=== PATIENT | female | born 1965 | race Caucasian/White ===

== ENCOUNTER 2016-12-05 22:41 | Inpatient (IN) | payer SELFPAY ==
[~2016-12-05] VITALS: Ht 134.6 cm; Wt 56.0 kg
[2016-12-05 23:02] VITALS: Ht 134.6 cm; Wt 56.0 kg
[2016-12-06 01:28] LABS: BASOPHIL # 0.1 10^3/ul (0.0-0.1); BASOPHILS % 0.6 % (0.0-2.0); EOSINOPHILS # 0.2 10^3/ul (0.0-0.5); EOSINOPHILS % 2.1 % (0.0-7.0); HEMATOCRIT 41.6 % (37.0-47.0); HEMOGLOBIN 14.2 g/dl (12.0-16.0); LYMPHOCYTES # 3.1 10^3/ul (0.8-2.9); LYMPHOCYTES % 29.5 % (15.0-51.0); MEAN CORPUSCULAR HEMOGLOBIN 31.8 pg (29.0-33.0); MEAN CORPUSCULAR HGB CONC 34.1 g/dl (32.0-37.0); MEAN CORPUSCULAR VOLUME 93.1 fl (82.0-101.0); MEAN PLATELET VOLUME 10.4 fl (7.4-10.4); MONOCYTE # 0.8 10^3/ul (0.3-0.9); MONOCYTES % 7.5 % (0.0-11.0); NEUTROPHIL # 6.2 10^3/ul (1.6-7.5); PLATELET COUNT 421 10^3/UL (140-415); RED BLOOD COUNT 4.47 10^6/ul (4.20-5.40); RED CELL DISTRIBUTION WIDTH 12.4 % (11.5-14.5); WHITE BLOOD COUNT 10.4 10^3/ul (4.8-10.8)
[2016-12-06 01:48] LABS: ALANINE AMINOTRANSFERASE 27 IU/L (13-69); ALBUMIN 4.1 g/dl (3.3-4.9); ALBUMIN/GLOBULIN RATIO 1.05; ALKALINE PHOSPHATASE 93 IU/L (42-121); ANION GAP 12 (8-16); ASPARTATE AMINO TRANSFERASE 23 IU/L (15-46); BILIRUBIN,INDIRECT 0.3 mg/dl (0-1.1); BILIRUBIN,TOTAL 0.3 mg/dl (0.2-1.3); BLOOD UREA NITROGEN 14 mg/dl (7-20); CALCIUM 9.7 mg/dl (8.4-10.2); CARBON DIOXIDE 25 mmol/L (21-31); CHLORIDE 108 mmol/L (97-110); GLUCOSE 101 mg/dl (70-220); POTASSIUM 3.8 mmol/L (3.5-5.1); SODIUM 141 mmol/L (135-144)
[2016-12-06 01:58] LABS: B-TYPE NATRIURETIC PEPTIDE 23 PG/ML (0-125)
[2016-12-06 02:06] LABS: TROPONIN-I < 0.012 ng/ml (0.00-0.12)
[2016-12-06] MEDS ORDERED: ASPI-535 PO (02:33)
[2016-12-06] MEDS ORDERED: AMLO5TAB4 PO (02:33)
--- NOTE | 2016-12-06 02:36 | ERD ---
ER Documentation Chief Complaint Date/Time DATE: 12/06/16 TIME: 02:35 Chief Complaint Chest pain, SOB x 5 days, worse today. Denies cough, trauma HPI 41-year-old female here for chest pain shortness for 5 days getting progressively worse. Today was the worst day. Denies cough. Chest pain is mild to moderate intensity, substernal with no exacerbating or alleviating factors. No nausea no vomiting no fevers no chills for shortness of breath seems to be related to her chest pain. Patient does have history of high blood pressure the past. ROS All systems reviewed and are negative except as per history of present illness. Medications Home Meds Reported Medications Aspirin Ec (Aspir 81) 81 Mg Tablet.dr, 81 MG PO DAILY, #30 TAB 12/06/16 Amlodipine Besylate* (Norvasc*) 5 Mg Tablet, 5 MG PO DAILY, TAB 12/06/16 Allergies Allergies: Coded Allergies: No Known Allergy (Unverified , 12/06/16) PMhx/Soc History of Surgery: Yes (GALL BLADDER) Hx Cardiac Disorders: Yes (HTN) Hx Psychiatric Problems: No Hx Alcohol Use: No Hx Substance Use: No Hx Tobacco Use: No Smoking Status: Never smoker Physical Exam Vitals Vital Signs Date Time Temp Pulse Resp B/P Pulse Ox O2 Delivery O2 Flow Rate FiO2 12/06/16 02:17 60 12 153/103 97 Room Air 12/06/16 01:06 64 10 166/85 99 Room Air 12/06/16 01:06 Nasal Cannula 2 12/05/16 23:02 98.9 75 18 177/88 95 Physical Exam Const: [] Head: Atraumatic Eyes: Normal Conjunctiva ENT: Normal External Ears, Nose and Mouth. Neck: Full range of motion..~ No meningismus. Resp: Clear to auscultation bilaterally Cardio: Regular rate and rhythm, no murmurs Abd: Soft, non tender, non distended. Normal bowel sounds Skin: No petechiae or rashes Back: No midline or flank tenderness Ext: No cyanosis, or edema Neur: Awake and alert Psych: Normal Mood and Affect Result Diagram: 12/06/1610112/06/16 0102 Results 24 hrs Laboratory Tests Test 12/06/16 01:02 White Blood Count 10.410^3/ul Red Blood Count 4.4710^6/ul Hemoglobin 14.2g/dl Hematocrit 41.6% Mean Corpuscular Volume 93.1fl Mean Corpuscular Hemoglobin 31.8pg Mean Corpuscular Hemoglobin Concent 34.1g/dl Red Cell Distribution Width 12.4% Platelet Count 18243^3/UL Mean Platelet Volume 10.4fl Neutrophils % 60.0% Lymphocytes % 29.5% Monocytes % 7.5% Eosinophils % 2.1% Basophils % 0.6% Nucleated Red Blood Cells % 0.0/100WBC Neutrophils # 6.210^3/ul Lymphocytes # 3.110^3/ul Monocytes # 0.810^3/ul Eosinophils # 0.210^3/ul Basophils # 0.110^3/ul Nucleated Red Blood Cells # 0.010^3/ul Sodium Level 141mmol/L Potassium Level 3.8mmol/L Chloride Level 108mmol/L Carbon Dioxide Level 25mmol/L Anion Gap 12 Blood Urea Nitrogen 14mg/dl Creatinine 0.80mg/dl Glucose Level 101mg/dl Calcium Level 9.7mg/dl Total Bilirubin 0.3mg/dl Direct Bilirubin 0.00mg/dl Indirect Bilirubin 0.3mg/dl Aspartate Amino Transf (AST/SGOT) 23IU/L Alanine Aminotransferase (ALT/SGPT) 27IU/L Alkaline Phosphatase 93IU/L Troponin I < 0.012ng/ml B-Type Natriuretic Peptide 23PG/ML Total Protein 8.0g/dl Albumin 4.1g/dl Globulin 3.90g/dl Albumin/Globulin Ratio 1.05 Procedures/MDM EKG: Rate/Rhythm: [Normal Sinus Rhythm] QRS, ST, T-waves: [No changes consistent w/ acute ischemia] Impression: [No evidence of ischemia or arrhythmia] Chest X-ray 1V Interpreted by me: Soft Tissue: No acute abnormalities Bones: No acute abnormalities Mediastinum/Cardiac Silhouette/Lungs: [No acute abnormalities] Patient's symptoms are concerning for cardiac cause will require inpatient workup and continuous monitoring. Further w/u for ischemia, arrhythmia, PE or dissection will be deferred to the inpatient team. Accepting Care Team: Current data and ongoing care discussed. Time: 230 Primary Provider: Hospitalist Consulting: [XOXOXO] Outstanding Data: none Departure Diagnosis: Primary Impression: Chest pain Chest pain type: unspecified Qualified Code: R07.9 - Chest pain, unspecified type Condition: Stable FATIMAH WEINER Dec 06, 2016 02:36
--- NOTE | 2016-12-06 06:07 | RADRPT ---
PROCEDURE: CHEST - 1 VIEW CLINICAL INDICATION: 51-year-old female with chest pain. TECHNIQUE: A single frontal AP upright view of the chest was performed. The images were reviewed on a PACS workstation. COMPARISON: None. FINDINGS: The cardiomediastinal silhouette has a normal appearance. There is no evidence for an infiltrate. There is no evidence for congestive heart failure. There is no evidence for pneumothorax. The osseou s structures are intact. IMPRESSION: No evidence for active cardiopulmonary disease. .Maximus Parekh MD, MD Date Time Electronically viewed and signed by .Maximus Parekh MD, on 12/06/2016 06:07 .Kiran/
[2016-12-06 07:40] LABS: CREATINE KINASE 37 IU/L (23-200)
[2016-12-06 08:03] LABS: CK-MB < 0.22 ng/ml (0.0-2.4); TROPONIN-I < 0.012 ng/ml (0.00-0.12)
[2016-12-06] MEDS ORDERED: ONDANSETRON 4 MG INJ IV PRN (09:00)
[2016-12-06] MEDS ORDERED: morphine 2 MG INJ IV PRN (09:00)
[2016-12-06] MEDS ORDERED: NITROGLYCERIN (SL) 0.4 MG TAB SL PRN (09:00)
[2016-12-06] MEDS ORDERED: NACL 0.9% 3 ML SYG IV SCH (09:00)
[2016-12-06] MEDS ORDERED: ACETAMINOPHEN 325 MG TAB PO PRN (09:00)
[2016-12-06] MEDS: METOPROLOL 25 MG TAB PO SCH ×2 (09:00→20:38)
[2016-12-06] MEDS ORDERED: ALBUTEROL/IPRATROPIUM (NEB) 3 ML AMP HHN PRN (09:00)
[2016-12-06] MEDS: ENOXAPARIN 40 MG/0.4 ML SYG SC SCH (09:16)
[2016-12-06] MEDS: ASPIRIN (EC) 81 MG TAB PO SCH (09:28)
[2016-12-06] MEDS: AMLODIPINE 5 MG TAB PO SCH (09:29)
[2016-12-06 09:33] LABS: BASOPHIL # 0.1 10^3/ul (0.0-0.1); EOSINOPHILS # 0.3 10^3/ul (0.0-0.5); EOSINOPHILS % 3.4 % (0.0-7.0); HEMATOCRIT 40.6 % (37.0-47.0); HEMOGLOBIN 13.4 g/dl (12.0-16.0); LYMPHOCYTES # 1.8 10^3/ul (0.8-2.9); LYMPHOCYTES % 23.2 % (15.0-51.0); MEAN PLATELET VOLUME 10.4 fl (7.4-10.4); MONOCYTE # 0.6 10^3/ul (0.3-0.9); MONOCYTES % 7.2 % (0.0-11.0); NEUTROPHIL # 5.2 10^3/ul (1.6-7.5); NEUTROPHILS % 64.9 % (39.0-77.0); PLATELET COUNT 380 10^3/UL (140-415); RED BLOOD COUNT 4.32 10^6/ul (4.20-5.40); RED CELL DISTRIBUTION WIDTH 12.7 % (11.5-14.5); WHITE BLOOD COUNT 7.9 10^3/ul (4.8-10.8)
--- NOTE | 2016-12-06 09:50 | HP ---
Date/Time of Note Date/Time of Note DATE: 12/06/16 TIME: 09:46 Assessment/Plan VTE Prophylaxis VTE Prophylaxis Intervention: SCD's Lines/Catheters IV Catheter Type (from Nrsg): Peripheral IV Assessment/Plan Assessment/Plan 1. Chest pain, rule out ACS -Admit to telemetry -Supplemental oxygen, aspirin, beta-benito, statin, with as needed nitro morphine. -2D echo -Cardiology consult as needed 2. Hypertension, BP not within goal -Continue antihypertensives with adjustment as needed HPI/ROS Admit Date/Time Admit Date/Time Hx of Present Illness This is a 51-year-old female with a history of hypertension who presents to the emergency department complaining of chest pain. Pain has been progressively getting worse for the past 1 week. It is located in the mid chest and slightly left-sided with no radiation and no associated shortness of breath, nausea, vomiting. When she presented to the ER, blood pressure was 177/88 otherwise rest of vitals are stable. First troponin is negative and EKG was no ST-T wave abnormalities. CBC and CMP within acceptable range. Chest x-ray was no active disease. PMH/Family/Social Social History Smoking Status: Never smoker Exam/Review of Systems Vital Signs Vitals Vital Signs Date Time Temp Pulse Resp B/P Pulse Ox O2 Delivery O2 Flow Rate FiO2 12/06/16 08:30 56 18 118/87 98 Room Air 12/06/16 06:30 98.2 12/06/16 01:06 2 Exam Constitutional: alert, oriented, well developed Head: atraumatic, normocephalic Eyes: EOMI, PERRL Respiratory: clear to auscultation, normal air movement Cardiovascular: nl pulses, regular rate and rhythm Gastrointestinal: non-tender, soft Extremities: normal pulses Labs Result Diagram: 12/06/1603 12/06/16 0102 Medications Medications Current Medications Ondansetron HCl (Zofran Inj) 4 mg Q6H PRN IV NAUSEA AND/OR VOMITING; Start 01/12 at 09:00 Nitroglycerin (Nitroglycerin (Sl Tab) 0.4 Mg) 1 tab Q5M PRN SL CHEST PAIN; Start 12/06/16 at 09:00 Acetaminophen (Tylenol Tab) 650 mg Q6H PRN PO PAIN LEVEL 1-3 OR FEVER; Start 12/06/16 at 09:00 Morphine Sulfate (morphine) 2 mg Q4H PRN IV PAIN LEVEL 7-10; Start 12/06/16 at 09:00 Enoxaparin Sodium (Lovenox) 40 mg DAILY SC Last administered on 12/06/16 09: 16; Admin Dose 40 MG; Start 12/06/16 at 09:00 Amlodipine Besylate (Norvasc) 5 mg DAILY PO Last administered on 12/06/16 09: 29; Admin Dose 5 MG; Start 12/06/16 at 09:00 Aspirin (Halfprin) 81 mg DAILY PO Last administered on 12/06/16 09:28; Admin Dose 81 MG; Start 12/06/16 at 09:00 Metoprolol Tartrate (Lopressor) 25 mg Q12H PO ; Start 12/06/16 at 09:00 FATIMAH JOHNSON MD Dec 06, 2016 09:49
[2016-12-06 10:02] LABS: ALBUMIN 4.1 g/dl (3.3-4.9); ALBUMIN/GLOBULIN RATIO 1.24; BILIRUBIN,INDIRECT 0.7 mg/dl (0-1.1); BILIRUBIN,TOTAL 0.7 mg/dl (0.2-1.3); CALCIUM 9.3 mg/dl (8.4-10.2); CHOL/HDL RATIO 5.5 RATIO; CREATININE 0.76 mg/dl (0.44-1.00); POTASSIUM 3.9 mmol/L (3.5-5.1); TOTAL PROTEIN 7.4 g/dl (6.1-8.1)
[2016-12-06 12:10] LABS: THYROID STIMULATING HORMONE 6.11 MIU/L (0.465-4.680)
[2016-12-06] MEDS ORDERED: IBUPROFEN 600 MG TAB PO PRN (14:30)
[2016-12-06 14:31] VITALS: TEMP 98.6
[2016-12-06 14:32] LABS: CREATINE KINASE 35 IU/L (23-200)
[2016-12-06 14:56] LABS: CK-MB < 0.22 ng/ml (0.0-2.4); TROPONIN-I < 0.012 ng/ml (0.00-0.12)
[2016-12-06 16:00] VITALS: PULSE 72
[2016-12-06 16:01] VITALS: BP 148/78; PULSE 72; RESP 17
[2016-12-06] MEDS ORDERED: INFLUENZA VIRUS VACCINE 0.5 ML SYG IM* ONE (18:00)
--- NOTE | 2016-12-06 20:00 | RADRPT ---
Echocardiogram Report Patient Name: ALISHA NARAYAN Gender: Female Date: 1965 Study Date: 06-Dec-2016 Architectural Technologist: SARAHI [facility] Location: [facility] Ref. Physician: FATIMAH JOHNSON Quality: Adequate Procedures: Transthoracic echocardiogram with complete 2D, M-Mode, and doppler examination. Indications: Chest Pain. 2D/M Mode Doppler Measurement Value Normal Ranges Measurement Value Normal Ranges LVIDd 2D 4.0 3.5 - 5.6 cm AV Peak Ang 1.3 m/sec LVIDs 2D 2.7 2.1 - 4.1 cm AV Peak PG 7.0 mmHg LVPWd 2D 1.0 0.6 - 1.1 cm LVOT Peak Ang 1.0 m/sec IVSd 2D 1.0 0.6 - 1.1 cm LVOT Peak PG 4.2 mmHg AoR Diam 2D 2.4 2.0 - 3.7 cm MV E Peak Ang 1.1 m/sec EDV 2D 70.4 cm3 MV A Peak Ang 0.6 m/sec ESV 2D 19.9 cm3 MV E/A 1.8 MV Decel Time 189 msec MV Decel [place] 6 MV E/A 1.8 Findings Left Ventricle: Normal left ventricular systolic function. Normal left ventricular cavity size. Normal left ventricular wall thickness. Ejection fraction is visually estimated at 6065 %. Abnormal Diastolic Function. Right Ventricle: Normal right ventricular size. Normal right ventricular systolic function. Left Atrium: The left atrium is normal in size. Right Atrium: The right atrium is normal in size. Mitral Valve: Mild mitral leaflet calcification. Mild mitral annular calcification. Trace mitral regurgitation. Aortic Valve: Normal appearance of the aortic valve. No significant aortic stenosis or insufficiency. Tricuspid Valve: Normal appearance of the tricuspid valve. Unable to obtain RVSP due to minimal presence of tricuspid regurgitation. There is trace tricuspid regurgitation. Pulmonic Valve: Pulmonic valve not well visualized. There is trace pulmonic regurgitation. Pericardium: Normal pericardium with no significant pericardial effusion. Aorta: Normal aortic root. IVC: Normal size and normal respiratory collapse consistent with normal right atrial pressure. Conclusions 1.Normal left ventricular systolic function. Normal left ventricular cavity size. Normal left ventricular wall thickness. Ejection fraction is visually estimated at 60-65 %. Abnormal Diastolic Function. 2.Mild mitral leaflet calcification. Mild mitral annular calcification. Trace mitral regurgitation. 3.Normal appearance of the tricuspid valve. Unable to obtain RVSP due to minimal presence of tricuspid regurgitation. There is trace tricuspid regurgitation. 4.Pulmonic valve not well visualized. There is trace pulmonic regurgitation. Electronically Signed By: Darius De Luna 06-Dec-2016 19:59:07 -0700 Patient Name: ALISHA NARAYAN Study Date: 06-Dec-[id number]
[2016-12-06 20:13] VITALS: PULSE 75
[2016-12-06 20:26] VITALS: BP 129/84; PULSE 80; RESP 18
[2016-12-07] VITALS (7 sets, daily range): BP systolic 112–136; BP diastolic 68–87; PULSE 51–68; RESP 18
--- NOTE | 2016-12-07 07:20 | CONS ---
DATE OF ADMISSION: 12/06/2016 DATE OF CONSULTATION: 12/06/2016 TYPE OF CONSULTATION: Cardiology. REASON FOR CONSULTATION: Chest pain, assess for acute coronary syndrome. REQUESTING PHYSICIAN: Dr. Joiner from the hospital service. HISTORY OF PRESENT ILLNESS: Ms. Cameron is a 51-year-old female with history of hypertension, who presents with 5 days of substernal chest pain described as a stabbing sensation, worse with bending over, exertional activities. Upon arrival in the emergency department, temperature 98.6, blood pressure 118/87, pulse 56, respiratory rate 18, saturating 98%. The patient's labs were notable for a negative troponin. The patient's electrocardiogram is not in the chart for my review at this time, unclear where that is at, as I am in the emergency department seeing the patient. The patient has had mildly elevated TSH of 6.11 and LDL 147, HDL 39. The patient underwent a chest x-ray revealing no acute cardiopulmonary abnormalities. On exam, patient has reproducibility of chest pain on palpitation of the chest. The patient has had a second troponin return negative. PAST MEDICAL HISTORY: As above in HPI. MEDICATIONS CURRENTLY IN HOSPITAL: 1. Zofran. 2. Sublingual nitroglycerin. 3. Tylenol p.r.n. 4. Morphine p.r.n. 5. DuoNebs p.r.n. 6. Norvasc 5 mg daily. 7. Aspirin 81 mg daily. 8. Lopressor 25 mg p.o. q. 12. ALLERGIES: NO KNOWN DRUG ALLERGIES. SOCIAL HISTORY: No tobacco, ETOH or illicit drug use. FAMILY HISTORY: No history of sudden cardiac or early CAD. REVIEW OF SYSTEMS: As above in HPI. CONSTITUTIONAL: No fevers, chills. PULMONARY: No shortness of breath. CARDIOVASCULAR: Chest pain. GASTROINTESTINAL: No vomiting. GENITOURINARY: No hematuria. MUSCULOSKELETAL: Degenerative joint disease. PSYCHIATRIC: The patient denies depression. NEUROLOGIC: No documented history of CVA. PHYSICAL EXAMINATION VITAL SIGNS: Temperature of 98.2, blood pressure 119/77, pulse 52, respiratory rate 18, saturating 99%. GENERAL: The patient is alert, awake, complaining of substernal chest pain. NECK: JVP approximately 8 cm of water. CHEST: Fair air movement throughout. HEART: Bradycardic, regular rhythm, normal S1, S2, I/ systolic murmur, nondisplaced PMI. ABDOMEN: Positive bowel sounds, soft. EXTREMITIES: No pitting edema, 1+ pulses bilaterally, posterior tibial. LABORATORY DATA: As above in HPI, with most recent from today, sodium 143, potassium 3.9, creatinine 0.7, BUN 12. LDL 147, HDL 39. White blood count 7.9 , platelet count 380. IMAGING STUDIES: As above in HPI. ELECTROCARDIOGRAM: No electrocardiograms for my review at this time. IMPRESSION: 1. Chest pain, atypical with reproducibility on palpation of patient's chest. 2. Hypertension. 3. Systolic murmur. RECOMMENDATIONS: 1. At this time, would place patient on telemetry monitoring and complete the patients rule out for myocardial infarction and send final troponin. 2. Continue the patient's current aspirin for prophylaxis against cardiovascular events. 3. Check a 2D echo to further assess patient's ejection fraction, wall motion and any major valve abnormalities. 4. Consider initiation of statin therapy in this patient, given elevated LDL. 5. Continue the patient's baseline Norvasc and beta benito to control blood pressure and heart rate, but will decrease dose of beta benito to allow the patient to better tolerate and will check a free T4 to further assess the patient's current thyroid state. 6. If the patient does rule out with total negative troponins and EKGs, which I will order now serially, do not reveal any significant changes, I believe at that time, the patient will be reasonable for discharge with further outpatient followup. Dictated By: EDYTA CORTES/ERKIA Conf#: [id number] DID#: [id number] SETH
[2016-12-07 07:22] LABS: BASOPHIL # 0.1 10^3/ul (0.0-0.1); BASOPHILS % 0.9 % (0.0-2.0); EOSINOPHILS # 0.3 10^3/ul (0.0-0.5); EOSINOPHILS % 4.9 % (0.0-7.0); HEMATOCRIT 41.4 % (37.0-47.0); HEMOGLOBIN 13.8 g/dl (12.0-16.0); LYMPHOCYTES # 2.2 10^3/ul (0.8-2.9); LYMPHOCYTES % 38.6 % (15.0-51.0); MEAN CORPUSCULAR HEMOGLOBIN 31.5 pg (29.0-33.0); MEAN CORPUSCULAR HGB CONC 33.3 g/dl (32.0-37.0); MEAN CORPUSCULAR VOLUME 94.5 fl (82.0-101.0); MEAN PLATELET VOLUME 10.5 fl (7.4-10.4); MONOCYTE # 0.5 10^3/ul (0.3-0.9); MONOCYTES % 8.1 % (0.0-11.0); NEUTROPHIL # 2.7 10^3/ul (1.6-7.5); NEUTROPHILS % 47.3 % (39.0-77.0); PLATELET COUNT 391 10^3/UL (140-415); RED BLOOD COUNT 4.38 10^6/ul (4.20-5.40); RED CELL DISTRIBUTION WIDTH 12.5 % (11.5-14.5); WHITE BLOOD COUNT 5.8 10^3/ul (4.8-10.8)
[2016-12-07 07:45] LABS: CHOL/HDL RATIO 6.3 RATIO
[2016-12-07 07:46] LABS: CALCIUM 9.6 mg/dl (8.4-10.2); CREATININE 0.84 mg/dl (0.44-1.00); PHOSPHORUS 4.2 mg/dl (2.5-4.9); POTASSIUM 4.3 mmol/L (3.5-5.1)
[2016-12-07] MEDS: AMLODIPINE 5 MG TAB PO SCH (09:00)
[2016-12-07] MEDS: METOPROLOL 25 MG TAB PO SCH (09:03)
[2016-12-07] MEDS: ASPIRIN (EC) 81 MG TAB PO SCH (09:03)
[2016-12-07] MEDS: ENOXAPARIN 40 MG/0.4 ML SYG SC SCH (09:05)
--- NOTE | 2016-12-07 13:03 | CONS ---
Date/Time of Note Date/Time of Note DATE: 12/07/16 TIME: 13:00 Assessment/Plan Assessment/Plan Chief Complaint/Hosp Course IMPRESSION: 1. Chest pain, atypical with reproducibility on palpation of patient's chest.- negative trop x 3/NL EF by echo. Likely costochondritis 2. Hypertension. 3. Systolic murmur.-mild MR/TR by echo this admit Recc: -Continue norvasc/BB/ASA -NSAIDS for pain -d/c planning today Problems: Consultation Date/Type/Reason Admit Date/Time Dec 06, 2016 at 02:33 Initial Consult Date 12/06/2016 Type of Consultation: cardiology Reason for Consultation chest pain Referring Provider: DANIELLE VILLALOBOS NP Exam/Review of Systems Vital Signs Vitals Vital Signs Date Time Temp Pulse Resp B/P Pulse Ox O2 Delivery O2 Flow Rate FiO2 12/07/16 12:00 55 12/07/16 08:40 98.3 18 136/87 97 Room Air 12/06/16 01:06 2 Exam Review of Systems: CONSTITUTIONAL: No fevers, chills. PULMONARY: No sob CARDIOVASCULAR: No chest pain/palpitations GASTROINTESTINAL: No nausea/vomiting. GENITOURINARY: No hematuria/dysuria. MUSCULOSKELETAL: No myagias/arthalgias. PSYCHIATRIC: The patient denies depression. NEUROLOGIC: No weakness Constitutional: alert, oriented Psych: no complaints Head: normocephalic ENMT: mucosa pink and moist Neck: jvd (9 cm water), supple Respiratory: clear to auscultation Cardiovascular: regular rate and rhythm Gastrointestinal: non-tender, soft Musculoskeletal: muscle tone (normal) Extremities: edema (none) Neurological: other (No focal deficits) Results Result Diagram: 12/07/1662612/07/16626 Results 24 hrs Laboratory Tests Test 12/06/16 13:55 12/07/16 06:26 12/07/16 06:27 Creatine Kinase 35 Creatine Kinase Index 0.6 Creatinine Kinase MB (Mass) < 0.22 Troponin I < 0.012 Free Thyroxine 0.85 White Blood Count 5.8 # Red Blood Count 4.38 Hemoglobin 13.8 Hematocrit 41.4 Mean Corpuscular Volume 94.5 Mean Corpuscular Hemoglobin 31.5 Mean Corpuscular Hemoglobin Concent 33.3 Red Cell Distribution Width 12.5 Platelet Count 391 Mean Platelet Volume 10.5 H Neutrophils % 47.3 Lymphocytes % 38.6 Monocytes % 8.1 Eosinophils % 4.9 Basophils % 0.9 Nucleated Red Blood Cells % 0.0 Neutrophils # 2.7 Lymphocytes # 2.2 Monocytes # 0.5 Eosinophils # 0.3 Basophils # 0.1 Nucleated Red Blood Cells # 0.0 Sodium Level 143 Potassium Level 4.3 Chloride Level 108 Carbon Dioxide Level 27 Anion Gap 12 Blood Urea Nitrogen 17 Creatinine 0.84 Glucose Level 86 Calcium Level 9.6 Phosphorus Level 4.2 Magnesium Level 2.0 Triglycerides Level 162 H Cholesterol Level 221 H LDL Cholesterol, Calculated 154 HDL Cholesterol 35 L Cholesterol/HDL Ratio 6.3 Medications Medications Current Medications Ondansetron HCl (Zofran Inj) 4 mg Q6H PRN IV NAUSEA AND/OR VOMITING; Start 01/12 at 09:00 Nitroglycerin (Nitroglycerin (Sl Tab) 0.4 Mg) 1 tab Q5M PRN SL CHEST PAIN; Start 12/06/16 at 09:00 Acetaminophen (Tylenol Tab) 650 mg Q6H PRN PO PAIN LEVEL 1-3 OR FEVER Last administered on 12/06/16 20:36; Admin Dose 650 MG; Start 12/06/16 at 09:00 Morphine Sulfate (morphine) 2 mg Q4H PRN IV PAIN LEVEL 7-10 Last administered on 12/06/16 14:42; Admin Dose 2 MG; Start 12/06/16 at 09:00 Enoxaparin Sodium (Lovenox) 40 mg DAILY SC Last administered on 12/07/16 09: 05; Admin Dose 40 MG; Start 12/06/16 at 09:00 Amlodipine Besylate (Norvasc) 5 mg DAILY PO Last administered on 12/07/16 09: 00; Admin Dose 5 MG; Start 12/06/16 at 09:00 Aspirin (Halfprin) 81 mg DAILY PO Last administered on 12/07/16 09:03; Admin Dose 81 MG; Start 12/06/16 at 09:00 Metoprolol Tartrate (Lopressor) 25 mg Q12H PO Last administered on 12/07/16 09:03; Admin Dose 25 MG; Start 12/06/16 at 09:00 Ibuprofen (Motrin) 600 mg Q8 PRN PO Pain; Start 12/06/16 at 14:30 EDYTA VELASQUEZ Dec 07, 2016 13:03
--- NOTE | 2016-12-07 13:12 | PDOCDIS ---
Discharge Instructions CONDITION Patient Condition: Stable HOME CARE INSTRUCTIONS: Diet Instructions: Low Fat /Cholesterol FOLLOW UP/APPOINTMENTS Follow-up Plan 1.Follow up with primary care physician in 1 week-Needs thyroid function blood test in 4weeks If you don't have one please let someone know, we can give you resources that may help you pick one. You may also call your insurance company to assign one to you. Review your medication list with your nurse before leaving and if you need new prescriptions please let your nurse know. I may have made changes to your home medications or given you new prescriptions, please let your primary doctor know as well. Stay compliant with your medications and report any side effects to your PCP or pharmacist. Return to the ER if you have any concerns and cannot reach your doctors or call your insurance company, they usually have a nurse that can help you. 2. Call 911 or go to the nearest emergency room if experiencing loss of consciousness, dizziness, chest pain, shortness of breath, vomiting/abdominal pain, speech difficulties, motor weakness or any unusual symptoms. OMAR WAHL NP Dec 07, 2016 13:12
[2016-12-07] MEDS ORDERED: METO-448 PO (13:14)
[2016-12-07] MEDS ORDERED: IBUP-1542 PO (13:14)
[2016-12-07] MEDS ORDERED: ATOR10TA65 PO (13:14)
--- NOTE | 2016-12-07 13:16 | DS ---
Date/Time of Note Date/Time of Note DATE: 12/07/16 TIME: 13:16 Discharge Summary Admission/Discharge Info Admit Date/Time Dec 06, 2016 at 02:33 Discharge Date/Time Discharge Diagnosis 1. Substernal chest pain, reproducible. Likely costochondritis 2. Hypertension. 3. Mild MR/TR 4. Dyslipidemia Patient Condition: Stable Consults Dr. De Luna, cardiology Procedures 12/06/2016. 2D echocardiogram. Conclusions 1. Normal left ventricular systolic function. Normal left ventricular cavity size. Normal left ventricular wall thickness. Ejection fraction is visually estimated at 60-65 %. Abnormal Diastolic Function. 2. Mild mitral leaflet calcification. Mild mitral annular calcification. Trace mitral regurgitation. 3. Normal appearance of the tricuspid valve. Unable to obtain RVSP due to minimal presence of tricuspid regurgitation. There is trace tricuspid regurgitation. 4. Pulmonic valve Hospital Course This is a 51-year-old female with a past medical history of hypertension, who presented to the emergency room for evaluation of substernal chest pain for evaluation. Patient's pain was exacerbated by taking a deep breath as well as touching the area. She was also in noted with elevated blood pressure upon arrival. Shee had negative troponin. Patient was treated with aspirin and was admitted to rule out acute coronary syndrome. A 2D echocardiogram showed preserved ejection fraction. It also showed mild MR/ TR. Patient was also evaluated by cardiology. She was continued on aspirin, metoprolol,and amlodipine. During the course of hospitalization, patient was noted with a mildly elevated TSH of 6.11. A free T4 was normal. Therefore the recommendation was to repeat testis in 4 weeks as outpatient and determine whether patient needs to be on treatment or not. She was also noted with LDL 154 with triglyceride 162, total cholesterol 221 and HDL 35. This time, recommendation was to initiate statin therapy. She also had normal LFTs. Serial troponin 3 was negative. Serial EKG without any ischemic events. Patient pain responded to NSAIDs. At this time, etiology of chest pain is likely secondary to costochondritis. There is no further inpatient cardiology workup indicated and patient is medically stable for discharge with outpatient follow-up. Disposition: Patient will be discharged home. She was instructed to follow-up with her primary care physician in 1 week. She was also instructed to repeat her thyroid test is in 4 weeks and lipid panel and titrate medications as indicated. Patient was given prescription for newly added medications. She verbalized discharge instructions. Rebecca 60 minutes was spent on managing the discharge on this patient. Patient was seen in collaboration with Dr. Palomo. Home Meds Active Scripts Atorvastatin Calcium (Atorvastatin Calcium) 10 Mg Tablet, 10 MG PO QHS, #30 TAB Prov:WAHLWONOMAR V. DENTAL COORDINATOR 12/07/16 Ibuprofen* (Ibuprofen*) 600 Mg Tablet, 600 MG PO Q8 Y for Pain, #60 TAB Prov:WAHL,OMAR V. DENTAL COORDINATOR 12/07/16 Metoprolol Tartrate* (Lopressor*) 25 Mg Tab, 25 MG PO Q12H, #60 TAB Prov:WAHL,OMAR V. DENTAL COORDINATOR 12/07/16 Reported Medications Aspirin Ec (Aspir 81) 81 Mg Tablet.dr, 81 MG PO DAILY, #30 TAB 12/06/16 Amlodipine Besylate* (Norvasc*) 5 Mg Tablet, 5 MG PO DAILY, TAB 12/06/16 Follow-up Plan 1.Follow up with primary care physician in 1 week-Needs thyroid function blood test in 4weeks If you don't have one please let someone know, we can give you resources that may help you pick one. You may also call your insurance company to assign one to you. Review your medication list with your nurse before leaving and if you need new prescriptions please let your nurse know. I may have made changes to your home medications or given you new prescriptions, please let your primary doctor know as well. Stay compliant with your medications and report any side effects to your PCP or pharmacist. Return to the ER if you have any concerns and cannot reach your doctors or call your insurance company, they usually have a nurse that can help you. 2. Call 911 or go to the nearest emergency room if experiencing loss of consciousness, dizziness, chest pain, shortness of breath, vomiting/abdominal pain, speech difficulties, motor weakness or any unusual symptoms. Primary Care Provider Care Physician No Primary Pending Labs Laboratory Tests Test 12/06/16 13:55 12/07/16 06:26 12/07/16 06:27 Creatine Kinase 35IU/L (23-200) Creatine Kinase Index 0.6 Creatinine Kinase MB (Mass) < 0.22ng/ml (0.0-2.4) Troponin I < 0.012ng/ml (0.00-0.12) Free Thyroxine 0.85ng/dl (0.64-1.79) White Blood Count 5.810^3/ul (4.8-10.8) Red Blood Count 4.3810^6/ul (4.20-5.40) Hemoglobin 13.8g/dl (12.0-16.0) Hematocrit 41.4% (37.0-47.0) Mean Corpuscular Volume 94.5fl (82.0-101.0) Mean Corpuscular Hemoglobin 31.5pg (29.0-33.0) Mean Corpuscular Hemoglobin Concent 33.3g/dl (32.0-37.0) Red Cell Distribution Width 12.5% (11.5-14.5) Platelet Count 11348^3/UL (140-415) Mean Platelet Volume 10.5fl (7.4-10.4) Neutrophils % 47.3% (39.0-77.0) Lymphocytes % 38.6% (15.0-51.0) Monocytes % 8.1% (0.0-11.0) Eosinophils % 4.9% (0.0-7.0) Basophils % 0.9% (0.0-2.0) Nucleated Red Blood Cells % 0.0/100WBC (0.0-0.0) Neutrophils # 2.710^3/ul (1.6-7.5) Lymphocytes # 2.210^3/ul (0.8-2.9) Monocytes # 0.510^3/ul (0.3-0.9) Eosinophils # 0.310^3/ul (0.0-0.5) Basophils # 0.110^3/ul (0.0-0.1) Nucleated Red Blood Cells # 0.010^3/ul (0.0-0.0) Sodium Level 143mmol/L (135-144) Potassium Level 4.3mmol/L (3.5-5.1) Chloride Level 108mmol/L (97-110) Carbon Dioxide Level 27mmol/L (21-31) Anion Gap 12 (8-16) Blood Urea Nitrogen 17mg/dl (7-20) Creatinine 0.84mg/dl (0.44-1.00) Glucose Level 86mg/dl (70-220) Calcium Level 9.6mg/dl (8.4-10.2) Phosphorus Level 4.2mg/dl (2.5-4.9) Magnesium Level 2.0mg/dl (1.7-2.5) Triglycerides Level 162mg/dl (0-149) Cholesterol Level 221mg/dl (100-200) LDL Cholesterol, Calculated 154mg/dl HDL Cholesterol 35mg/dl (37-92) Cholesterol/HDL Ratio 6.3ROMAR WATERS V. DENTAL COORDINATOR Dec 07, 2016 13:16
--- NOTE | 2016-12-08 16:03 | RADRPT ---
Vent Rate: 53 bpm RR Interval: 0 msec [place] Interval: 134 msec QRS Duration: 88 msec QT Interval: 466 msec QTC Interval: 437 msec P-R-T Colt: 48 - 54 - 72 degrees Sinus bradycardia Otherwise normal ECG Electronically Signed By: Josehp Lopez [id number]
== END 2016-12-07 14:10 | disposition home or self-care (01) | DRG 206 ==
LOC: E/R 22:41 → MS3 12-06 02:33
PROVIDERS: ADMIT Internal Medicine; ATTEND Internal Medicine
DX: M94.0 Chondrocostal junction syndrome [Tietze] (principal); I10 Essential (primary) hypertension; E78.5 Hyperlipidemia, unspecified
CPT/HCPCS: 36415; 71010; 80048; 80053; 80061; 82550; 82553; 83036; 83735; 83880; 84100; 84439; 84443; 84484; 85025; 90686; 93005; 93306; 96372; 96374; J1650; J2270